=== PATIENT | female | born 1995 | race Caucasian/White ===

== ENCOUNTER 2024-01-12 13:06 | Emergency (ER) | payer BC, SELFPAY ==
[2024-01-12 13:07] VITALS: BP 145/98
[2024-01-12 14:31] VITALS: BP 140/79
--- NOTE | 2024-01-12 14:45 | ED.GENMED ---
History of Present Illness
General
Chief Complaint: Headache
Source: patient
Time Seen by Provider: 01/12/24 14:33
History of Present Illness
History of Present Illness:
28yoF with a history of seasonal allergies presenting for evaluation of a headache x 5 days. She started with nasal congestion and a head cold earlier this week. She then developed a right parietal headache which she describes as throbbing and
squeezing. The pain has been constant for the past several days despite taking Tylenol and ibuprofen. She denies any history of similar headaches. She was seen by her embalmer/funeral director 4 days ago who initially recommended nasal sprays. Her symptoms did not
improve so her embalmer/funeral director prescribed prednisone and Augmentin. She took the first dose of these medications 2 hours ago. Her headache is currently an 8/10 in severity. Her headache has improved since taking the prednisone and Augmentin dose. She is
otherwise asymptomatic and denies any fevers, neck stiffness, vomiting, visual disturbance, head trauma, photophobia, phonophobia.
Past History
Past History
ED Past Medical History: None
ED Past Surgical History: Other (wisdom teeth 05/30/2016)
Social History
Tobacco: Non-smoker
Alcohol: None
Drug: None
Personal: Single
Living: with family
Employment: Student
Phy Exam
Physical Exam
Physical Exam:
Patient resting comfortably on stretcher. No meningismus present.
General Physical Exam
General Presentation: well appearing and no apparent distress
General Skin: warm and dry
Eye Exam
Eye Exam: PERRL
Cardiovascular Exam
Cardiovascular Exam: regular rate/rhythm
Heart Sounds: normal
Pulmonary Exam
Pulmonary Exam: lungs clear, no respiratory distress, no crackles and no wheezing
Neurological Exam
Neurological Exam: alert and no motor deficits
Robi Coma Scale
Eye Opening: Spontaneous
Verbal Response: Oriented
Motor Response: Obeys Commands
GCS Total Score: 15
Course
Orders/Labs/Results
Orders:
Orders
01/12/24 14:42
0.9% Sodium Chloride 1000 ml [Nss] 1,000 ml IV BOLUS
Diphenhydramine [Benadryl] 25 mg IV NOW STA
Ketorolac [Toradol] 15 mg IV NOW STA
Magnesium Sulfate 1 G/D5w [Magnesium Sulfate] 1 gm in 100 ml IV NOW
Metoclopramide [Reglan] 10 mg IV NOW STA
01/12/24 14:44
Test Result ONCE
01/12/24 14:58
HCG, Urine Qualitative Screen Urgent
Date Specimen was Collected: 01/12/24
Time Specimen was Collected: 14:51
Vital Signs
Initial and Last Documented VS:
Initial Vital Signs
Temp Pulse Resp BP Pulse Ox
98.3 F 95 18 145/98 95
01/12/24 13:07 01/12/24 13:07 01/12/24 13:07 01/12/24 13:07 01/12/24 13:07
Last Documented Vital Signs
Temp Pulse Resp BP Pulse Ox
98.3 F 87 18 136/74 99
01/12/24 13:07 01/12/24 16:12 01/12/24 16:12 01/12/24 16:12 01/12/24 16:12
MDM/Problems Addressed
Differential Diagnosis Includes:
28yoF here with a headache x 4 days. Also having nasal congestion which is improving. Pain currently an 8/10 in severity. No fevers. Patient is afebrile and hemodynamically stable. She is well-appearing in no acute distress. No meningismus or
focal neurologic deficits on exam. Differential diagnosis includes but is not limited to: Migraine, tension headache, sinus infection, dehydration, doubt meningitis
Initial ED plan: IV migraine cocktail and reassess.
*Critical Care Note
Total Time (30-74mins, 75-104mins- exclusive of procedures): Not Applicable
Update Note
Update Note:
Patient reassessed after medications. She is feeling significantly improved and headache is currently a 1/10 in severity. She feels comfortable with discharge. Supportive care discussed. Advise follow-up with PCP. ED return precautions discussed.
She was discharged in stable condition.
ED Attending Note
-
Portions of this chart may have been created with voice recognition software.� Occasional wrong word or��sound alike� substitutions may have occurred due to the inherent limitations of voice recognition software.
Discharge Plan
Departure
Patient Disposition: Home (Routine Discharge)
Date of Disposition: 01/12/24
Time of Disposition: 16:49
Patient with high blood pressure during this ER visit?: No
Discharge Problem:
Acute nonintractable headache
Instructions: Headache, Adult (DC)
Prescriptions:
No Action
ondansetron 4 MG tablet,disintegrating
4 mg PO TIDPRN PRN (Reason: nausea) Qty: 7 1RF
cyclobenzaprine 10 MG tablet
10 mg PO TIDPRN PRN (Reason: spasm) Qty: 9 0RF
Referrals:
Ibrahima Gale CRNP [Family Provider] -
Activity Restrictions/Additional Instructions:
Drink plenty of fluids and hydrate. Take prednisone and Augmentin as prescribed by your embalmer/funeral director. Take Tylenol and ibuprofen for pain.
Please follow-up with your family doctor. Return to the ER with any new or worsening symptoms.
Interventions
Interventions:
*Risk Screen - Suicide Last Done: 01/12/24 13:31
*General Assessment Last Done: 01/12/24 13:31
*Neglect/Abuse Screening Last Done: 01/12/24 13:31
ED- Fall Risk Assessment Last Done: 01/12/24 13:31
*Nursing Disposition Last Done: 01/12/24 16:51
ED- Neurological Assessment Last Done: 01/12/24 13:31
Discharge Date and Time
Discharge Date/Time: 01/12/24 17:06
Print Language: MAORI
[2024-01-12] MEDS: BENADRYL 25 MG IV (14:58)
[2024-01-12] MEDS: MAGNESIUM SULFATE 100 IV (14:59)
[2024-01-12] MEDS: TORADOL 15 MG IV (14:59)
[2024-01-12] MEDS: REGLAN 10 MG IV (14:59)
[2024-01-12] MEDS: NSS 1000 IV (14:59)
[2024-01-12 15:31] LABS: HCG, Urine Qualitative Screen Negative
[2024-01-12 16:12] VITALS: BP 136/74
== END 2024-01-12 17:06 | disposition home or self-care (01) ==
LOC: EMR 13:06
PROVIDERS: Physician Assistant; EMERGENCY PHYSICIAN Emergency Medicine; FAMILY PHYSICIAN Nurse Practitioner Family
DX: R51.9 Headache, unspecified (principal)
CPT/HCPCS: 99282; 96365; 96375; 81025

== ENCOUNTER → 2024-03-14 07:23 | Outpatient (REF) | payer BC, SELFPAY | LOC: RAD 07:23 | PROVIDERS: ATTENDING PHYSICIAN Otolaryngology; FAMILY PHYSICIAN Nurse Practitioner Family | DX: J01.01 Acute recurrent maxillary sinusitis (principal) | CPT/HCPCS: 70486 ==

== ENCOUNTER 2025-07-05 03:25 | Emergency (ER) | payer BC, SELFPAY ==
[2025-07-05 03:26] VITALS: BP 124/82
--- NOTE | 2025-07-05 04:10 | ED.GENMED ---
History of Present Illness
<Evan Hartmann MD, Resident - Last Filed: 07/05/25 06:28>
General
Chief Complaint: Abdominal Symptoms
Time Seen by Provider: 07/05/25 04:07
History of Present Illness
History of Present Illness:
29 yo F no significant PMH p/w abdominal pain of acute onset 24 hours ago. It is in epigastric and LUQ region. She reports that it is constant, pressure-like quality, a/w nausea, vomiting, diarrhea. denies hematemesis, hematochezia.
unable to tolerate PO intake
no new foods, no history of RUQ pain, not happened before, alleviated by lying down, worsened by sitting up
no prior abdominal surgeries
denies chest pain, headache
endorses some dyspnea to deep inspiration
she reports having had symptoms of reflux in the past that she manages with dietary changes, this feels different
Social hx unremarkable
LMP 3 weeks ago, reports on control
she also reports having had pain related to menstrual cycle, but this pain is not similar to pain related to her prior menstrual cycles
Past History
<Evan Hartmann MD, Resident - Last Filed: 07/05/25 06:28>
Past History
ED Past Medical History: None
ED Past Surgical History: Other (wisdom teeth 05/30/2016)
Social History
Tobacco: Non-smoker
Alcohol: None
Drug: None
Personal: Single
Living: with family
Employment: Student
Review of Systems
<Evan Hartmann MD, Resident - Last Filed: 07/05/25 06:28>
Review of Systems
Constitutional: Reports no symptoms
EENT: Reports no symptoms
Respiratory: Reports no symptoms
Cardiac: Reports no symptoms
ABD/GI: Reports abdominal pain, nausea, vomiting and diarrhea
: Reports no symptoms
Neurological: Reports no symptoms
Phy Exam
<Evan Hartmann MD, Resident - Last Filed: 07/05/25 06:28>
Physical Exam
Physical Exam:
VS: 124/82; HR 85; RR 22; T 97.5
General: no acute distress, mucus membranes appear dry
CV: no murmurs on my exam
Pulm: CTAB
GI: + bowel sounds, tender to palpation diffusely, no rebound tenderness of my exam
MSK: no lower extremity edema
Neuro: nonfocal
Course
<Evan Hartmann MD, Resident - Last Filed: 07/05/25 06:28>
Orders/Labs/Results
Orders:
Orders
07/05/25 04:37
Ketorolac [Toradol] 15 mg IV NOW STA
Ondansetron Injectable [Zofran] 4 mg IV NOW STA
Test Result ONCE
07/05/25 04:47
0.9% Sodium Chloride 1000 ml [Nss] 1,000 ml IV BOLUS
07/05/25 04:52
Complete Blood Count/With Diff Urgent
Comprehensive Metabolic Panel Urgent
HCG, Serum Qualitative Screen Urgent
Lactate Level [Lactic Acid] Urgent
Lipase Urgent
07/05/25 06:10
Ondansetron Orally Disint [Zofran Odt (Orally Disintegrating)] 4 mg PO NOW STA
Abnormal Lab Results
07/05/25
04:52
RBC 4.17 L 10^6/uL
(4.20-5.40)
MCH 32.6 H pg
(27.0-31.0)
MPV 10.5 H fL
(7.4-10.4)
Absolute Neuts (auto) 7.3 H 10^3/uL
(1.4-6.5)
Neutrophils % 79.4 H %
(42.2-75.2)
Lymphocytes % 12.6 L %
(20.5-51.1)
Sodium 134 L mmol/L
(135-145)
Potassium 3.4 L mmol/L
(3.5-5.1)
Carbon Dioxide 21 L mmol/L
(22-30)
Glucose 120 H mg/dl
(70-99)
07/05/25 04:52
07/05/25 04:52
Vital Signs
Initial and Last Documented VS:
Initial Vital Signs
Temp Pulse Resp BP Pulse Ox
97.5 F 85 22 124/82 100
07/05/25 03:26 07/05/25 03:26 07/05/25 03:26 07/05/25 03:26 07/05/25 03:26
Last Documented Vital Signs
Temp Pulse Resp BP Pulse Ox
97.5 F 75 16 112/66 98
07/05/25 03:26 07/05/25 05:45 07/05/25 05:45 07/05/25 05:45 07/05/25 05:45
<Felix Bill, - Last Filed: 07/05/25 05:30>
Orders/Labs/Results
Orders:
Orders
07/05/25 04:37
Ketorolac [Toradol] 15 mg IV NOW STA
Ondansetron Injectable [Zofran] 4 mg IV NOW STA
Test Result ONCE
07/05/25 04:47
0.9% Sodium Chloride 1000 ml [Nss] 1,000 ml IV BOLUS
07/05/25 04:52
Complete Blood Count/With Diff Urgent
Comprehensive Metabolic Panel Urgent
HCG, Serum Qualitative Screen Urgent
Lactate Level [Lactic Acid] Urgent
Lipase Urgent
07/05/25 06:10
Ondansetron Orally Disint [Zofran Odt (Orally Disintegrating)] 4 mg PO NOW STA
Abnormal Lab Results
07/05/25
04:52
RBC 4.17 L 10^6/uL
(4.20-5.40)
MCH 32.6 H pg
(27.0-31.0)
MPV 10.5 H fL
(7.4-10.4)
Absolute Neuts (auto) 7.3 H 10^3/uL
(1.4-6.5)
Neutrophils % 79.4 H %
(42.2-75.2)
Lymphocytes % 12.6 L %
(20.5-51.1)
Sodium 134 L mmol/L
(135-145)
Potassium 3.4 L mmol/L
(3.5-5.1)
Carbon Dioxide 21 L mmol/L
(22-30)
Glucose 120 H mg/dl
(70-99)
07/05/25 04:52
07/05/25 04:52
Vital Signs
Initial and Last Documented VS:
Initial Vital Signs
Temp Pulse Resp BP Pulse Ox
97.5 F 85 22 124/82 100
07/05/25 03:26 07/05/25 03:26 07/05/25 03:26 07/05/25 03:26 07/05/25 03:26
Last Documented Vital Signs
Temp Pulse Resp BP Pulse Ox
97.5 F 75 16 112/66 98
07/05/25 03:26 07/05/25 05:45 07/05/25 05:45 07/05/25 05:45 07/05/25 05:45
<Evan Hartmann MD, Resident - Last Filed: 07/05/25 06:28>
MDM/Problems Addressed
Differential Diagnosis Includes:
gastritis/gastroenteritis, pancreatitis, cholecystitis, cholangitis, peptic ulcer disease, GERD, appendicitis, small bowel obstruction
MDM/Problems Addressed:
29 yo F no significant past medical history with abdominal pain, n/v/d, no other family contacts are ill with symptoms
abdominal exam is reassuring against peritoneal signs
epigastric/LUQ pain, does not really endorse RUQ pain, and physical exam is n/f mainly diffuse pain
no hematemesis/no hematochezia
no history of abdominal surgery, less likely an SBO
mucus membranes appear dry
Plan:
- CBC
- CMP
- hCG
- lipase
- lactate
- IV ondansetron for antinausea
- IV toradol for pain control
- IV normal saline 1L
Update:
hCG, negative
lactate 1.2
Lipase 65
WBC 9.2
LFTs within normal limits
Update:
patient reports that ondansetron and toradol helped significantly; she is amenable to going home after completing IV fluids
Update @ 06:07:
patient completed IV fluids but reported some nausea ->ondansetron ODT 4mg administered
sent ondansetron PO prescription to pharmacy; and counselled patient on using tylenol and/or ibuprofen for pain control in outpatient setting
patient appears medically stable for discharge and patient is okay to be discharged
<Evan Hartmann MD, Resident - Last Filed: 07/05/25 06:28>
*Pulse Oximetry
SaO2: 100
Oxygen Mode of Delivery: Room air
Patient hypoxic: no
*Critical Care Note
Total Time (30-74mins, 75-104mins- exclusive of procedures): Not Applicable
ED Attending Note
<Evan Hartmann MD, Resident - Last Filed: 07/05/25 06:28>
-
Portions of this chart may have been created with voice recognition software.� Occasional wrong word or��sound alike� substitutions may have occurred due to the inherent limitations of voice recognition software.
<Felix Bill, DO - Last Filed: 07/05/25 05:30>
ED Attending Note
Patient seen and examined by attending physician: Yes
I performed a history and physical exam of patient and discussed management with resident, I reviewed resident's note and agree with documented findings and plan of care.: Yes
ED Attending Note:
Seen with resident examined independently 29-year-old female with nausea vomiting diarrhea lips are dry, abdomen soft nontender, hCG negative labs are noted
Discharge Plan
Departure
Patient Disposition: Home (Routine Discharge)
Date of Disposition: 07/05/25
Time of Disposition: 06:19
Patient with high blood pressure during this ER visit?: No
Condition: Good
Discharge Problem:
Abdominal pain
Prescriptions:
New
ondansetron 4 mg tablet,disintegrating
4 mg PO Q8H PRN (Reason: nausea and vomiting) Qty: 10 0RF
No Action
desog-e.estradiol/e.estradiol [Kariva (28)] 0.15-0.02 mgx21 /0.01 mg x 5 Tablet
1 tab PO DAILY
Referrals:
Amina Flores CRNP [Family Provider, Internal Medicine]
Activity Restrictions/Additional Instructions:
You presented to the hospital with abdominal pain, nausea, vomiting and diarrhea. You received IV ondansetron and fluids to manage the symptoms while here. A prescription for PO ondansetron has been sent to your pharmacy. Please take a tablet every
8 hours, as needed for nausea/vomiting. For pain control, over the counter acetaminophen and/or ibuprofen is recommended.
Interventions
Interventions:
*General Assessment Last Done: 07/05/25 03:26
*Neglect/Abuse Screening Last Done: 07/05/25 03:26
*ED COVID-19 Vaccine History Last Done: 07/05/25 05:04
*ED Influenza Vaccine History Last Done: 07/05/25 05:04
[facility] Risk Assessment Tool Last Done: 07/05/25 04:45
*Risk Screen - Suicide (C-SSRS) Last Done: 07/05/25 03:26
[facility]-Uubvoidpof Assessment Last Done: 07/05/25 05:04
Discharge Date and Time
Print Language: LIBERIAN
[2025-07-05 04:45] VITALS: BMI 19.8
[2025-07-05] MEDS: ZOFRAN 4 MG IV (04:54)
[2025-07-05] MEDS: TORADOL 15 MG IV (04:56)
[2025-07-05] MEDS: NSS 1000 IV (04:59)
[2025-07-05 05:03] LABS: Hematocrit 39.0 % (37.0-47.0); Hemoglobin 13.6 g/dL (12.0-16.0); Mean Corp Hgb Conc. 34.9 g/dL (33.0-37.0); Mean Corpuscular Volume 93.5 fL (81.0-99.0); Nucleated Red Blood Cells % 0 %; Platelet Count 290 10^3/uL (130-400); Red Cell Dist. Width 11.7 % (11.5-14.5)
--- NOTE | 2025-07-05 05:05 | EDRN ---
Pt with upper abd pain, nausea, vomiting and diarrhea x 24 hours. Last episode diarrhea approximately 6 hours ago and vomiting 3.5-4 hours ago. Pt says she tried to eat toast and it came back up. No ill contacts and no hx similar symptoms. Pt
denies cp, sob, fever/chills/cough, urinary symptoms.
[2025-07-05 05:16] LABS: HCG, Serum Qualitative Screen Negative
[2025-07-05 05:17] LABS: ALT (SGPT) 25 U/L (0-35); AST (SGOT) 25 U/L (14-36); Albumin 4.2 g/dl (3.5-5.0); Alkaline Phosphatase 74 U/L (38-126); Blood Urea Nitrogen 13 mg/dl (7-17); Calcium 9.1 mg/dl (8.4-10.2); Carbon Dioxide 21 mmol/L (22-30); Chloride 104 mmol/L (98-107); Estimated Creatinine Clearance 109 ml/min; Glucose 120 mg/dl (70-99); Lipase 65 U/L (23-300); Potassium 3.4 mmol/L (3.5-5.1); Sodium 134 mmol/L (135-145); Total Protein 7.0 g/dl (6.3-8.2); eGFR > 60.00
[2025-07-05 05:45] VITALS: BP 112/66
[2025-07-05] MEDS: ZOFRAN ODT (ORALLY DISINTEGRATING) 4 MG PO (06:18)
== END 2025-07-05 06:30 | disposition home or self-care (01) ==
LOC: EMR 03:25
PROVIDERS: EMERGENCY PHYSICIAN Emergency Medicine; FAMILY PHYSICIAN Nurse Practitioner Family
DX: R10.13 Epigastric pain (principal); R10.12 Left upper quadrant pain; R11.2 Nausea with vomiting, unspecified; R19.7 Diarrhea, unspecified
CPT/HCPCS: 96374; 96375; 96361; 99284; 80053; 83605; 83690; 84703; 85025